=== PATIENT | female | born 1980 | race Caucasian/White ===

== ENCOUNTER 2019-12-27 09:14 | Outpatient (REF) | payer OTHER, SELFPAY | END 2019-12-27 09:15 | disposition home or self-care (01) | LOC: HO.LAB 09:14 | PROVIDERS: Visit Provider Nurse Practitioner Family | DX: J02.9 Acute pharyngitis, unspecified (principal) | CPT/HCPCS: 87071; 87635; 87880 ==

== ENCOUNTER → 2020-11-29 09:49 | Outpatient (BNVA) | payer OTHER, SELFPAY | PROVIDERS: Visit Provider Internal Medicine | DX: S80.01XA Contusion of right knee, initial encounter (principal); S90.121A Contusion of right lesser toe(s) without damage to nail, initial encounter; W18.30XA Fall on same level, unspecified, initial encounter | CPT/HCPCS: 73564; 73660; 99203 ==